=== PATIENT | female | born 1995 | race Two or more races ===

== ENCOUNTER 2017-06-11 16:39 | Emergency (ER) | payer SELFPAY ==
[2017-06-11 16:59] VITALS: BP 111/66
[2017-06-11] MEDS ORDERED: LORATADINE 10 MG TABLET PO ONE (17:37)
[2017-06-11] MEDS ORDERED: ACETAMINOPHEN 325 MG TABLET PO ONE (17:37)
--- NOTE | 2017-06-11 17:43 | ER Document Report ---
ED Respiratory Problem - General Chief Complaint: Congestion Stated Complaint: COUGH Time Seen by Provider: 06/11/17 17:29 Mode of Arrival: Ambulatory Information source: Patient Notes: 42-year-old female presents to ED for cough cold congestion and sore throat times a week. She states that her friend have both been sick and she just come down with it. She does states she has not had a menstrual cycle and 2 months she was informed that she needed to go to the [email or web address] and get a test to check to see if she was before taking any Sudafed and Mucinex. TRAVEL OUTSIDE OF THE [place] IN LAST 30 DAYS: No - HPI Patient complains to provider of: Cough Onset: Last week Duration: Continuous Initiating Event: URI Quality of pain: Achy, Other Severity: Moderate - Sore throat Pain Level: 3 Cough: Nonproductive Sputum amount: None Associated symptoms: Congestion, Cough, PND, Runny nose, Sinus pain/pressure, Sore Throat, Other - Body aches Similar symptoms previously: Yes Recently seen / treated by doctor: No - Related Data Allergies/Adverse Reactions: cephalexin monohydrate [From Keflex] Allergy (Verified 06/11/17 17:37) Past Medical History - General Information source: Patient - Social History Smoking Status: Current Every Day Smoker Cigarette use (# per day): Yes - One third pack a day Chew tobacco use (# tins/day): No Smoking Education Provided: Yes - Less than 2 minutes Frequency of alcohol use: Occasional Drug Abuse: None Occupation: [employer] Lives with: Friend Family History: Reviewed & Not Pertinent Patient has suicidal ideation: No Patient has homicidal ideation: No - Past Medical History Cardiac Medical History: Reports: None Pulmonary Medical History: Reports: None EENT Medical History: Reports: None Neurological Medical History: Reports: None Endocrine Medical History: Reports: None Renal/ Medical History: Reports: None Malignancy Medical History: Reports: None GI Medical History: Reports: None Musculoskeltal Medical History: Reports None Skin Medical History: Reports None Psychiatric Medical History: Reports: None Traumatic Medical History: Reports: None Infectious Medical History: Reports: None Past Surgical History: Reports: Hx Section - Immunizations Immunizations up to date: Yes Hx Diphtheria, Pertussis, Tetanus Vaccination: Yes Review of Systems - Review of Systems Constitutional: Recent illness EENT: Nose discharge, Sinus discharge, Throat pain Cardiovascular: No symptoms reported Respiratory: Cough Gastrointestinal: No symptoms reported Genitourinary: No symptoms reported Female Genitourinary: No symptoms reported Musculoskeletal: Muscle pain - Body aches Skin: No symptoms reported Hematologic/Lymphatic: No symptoms reported Neurological/Psychological: No symptoms reported -: Yes All other systems reviewed and negative Physical Exam - Vital signs Vitals: Temp Pulse Resp BP Pulse Ox 98.6 F 79 18 111/66 97 06/11/17 16:57 06/11/17 16:57 06/11/17 16:57 06/11/17 16:57 06/11/17 16:57 Interpretation: Normal - General General appearance: Appears well, Alert - HEENT Head: Normocephalic, Atraumatic Eyes: Normal Pupils: PERRL Visual morris normal: Yes Ears: Normal External canal: Normal Tympanic membrane: Normal Sinus: Normal Nasal: Purulent discharge, Swelling Mouth/Lips: Normal Mucous membranes: Normal Pharynx: Post nasal drainage Neck: Normal - Respiratory Respiratory status: No respiratory distress Chest status: Nontender Breath sounds: Normal Chest palpation: Normal - Cardiovascular Rhythm: Regular Heart sounds: Normal auscultation Murmur: No - Abdominal Inspection: Normal Distension: No distension Bowel sounds: Normal Tenderness: Nontender Organomegaly: No organomegaly - Back Back: Normal, Nontender - Extremities General upper extremity: Normal inspection, Nontender, Normal color, Normal ROM , Normal temperature General lower extremity: Normal inspection, Nontender, Normal color, Normal ROM , Normal temperature, Normal weight bearing. No: Carlos's sign - Neurological Neuro grossly intact: Yes Cognition: Normal Orientation: AAOx4 [place] Coma Scale Eye Opening: Spontaneous Irineo Coma Scale Verbal: Oriented Irineo Coma Scale Motor: Obeys Commands [place] Coma Scale Total: 15 Speech: Normal Motor strength normal: LUE, RUE, LLE, RLE Sensory: Normal - Psychological Associated symptoms: Normal affect, Normal mood - Skin Skin Temperature: Warm Skin Moisture: Dry Skin Color: Normal Course - Re-evaluation Re-evalutation: 06/11/17 17:44 Assessment consistent with an upper respiratory infection. Patient was given Claritin and Tylenol in the emergency room. Patient was discharged home to follow-up with her primary doctor. - Vital Signs Vital signs: Temp Pulse Resp BP Pulse Ox 98.6 F 79 18 111/66 97 06/11/17 16:57 06/11/17 16:57 06/11/17 16:57 06/11/17 16:57 06/11/17 16:57 Discharge - Discharge Clinical Impression: URI (upper respiratory infection) Qualifiers: URI type: unspecified URI Qualified Code(s): J06.9 - Acute upper respiratory infection, unspecified Condition: Stable Disposition: HOME, SELF-CARE Instructions: Family Physicians / Practices Additional Instructions: UPPER RESPIRATORY ILLNESS: You have a viral infection of the respiratory passages -- a "cold." This common infection causes nasal congestion, drainage, and often sore throat and cough. It is highly contagious. The disease usually lasts about 10 to 14 days. There is no "cure" for the viral infection -- it must run its course. If there is a complication, such as bacterial infection in the nose, sinuses, middle ear, or bronchial tubes, antibiotics may be required. The antibiotics won't affect the virus. Drink plenty of fluids. A humidifier may help. An expectorant medication or decongestant may make you more comfortable. Use acetaminophen or ibuprofen for fever or aches. See the doctor if fever persists over two days, if there is any significant worsening of your symptoms, or if you simply fail to improve as expected. You were given Claritin and Tylenol in the emergency room for your cough and cold symptoms. If you take a test and it is negative then you can use Mucinex and Sudafed for your cough cold symptoms also. DECONGESTANT MEDICATION: A decongestant medicine has been suggested. Often this medicine is combined in the same tablet with an antihistamine or expectorant. This type of medicine is helpful in treating a bad cold or sinus condition, as well as in treatment of the nasal congestion of hay fever. It is not of much benefit for lung infections. Decongestant medicines are related to stimulants. They can cause an increase in blood pressure and heart rate. Persons with heart disease and high blood pressure should not take decongestants without discussing this with the physician. If you develop palpitations, chest pain, headache, or tremors, stop the medicine and consult your physician. COUGH-SUPPRESSANT & EXPECTORANT MEDICATION: You are to use a cough medication as needed for relief of symptoms. This medicine is a combination of an expectorant (to make the mucous thinner and more easily "coughed up") and a cough suppressant (to reduce the frequency of coughing). The cough-suppressant medicine is related to narcotics. You may experience mild nausea and sleepiness. Some patients who are very sensitive to narcotics may have stomach pain from this medicine. Taking the medicine with food reduces these side effects. Do not drive or work with machinery until you know how this medicine affects you. The expectorant should have no side effects. Iodine-containing expectorants (such as organidin) should not be taken by persons with active thyroid disease unless approved by your doctor. Call the doctor if you develop shortness of breath, hives, rash, itching, lightheadedness, or severe nausea and vomiting. USE OF ACETAMINOPHEN (Tylenol): Acetaminophen may be taken for pain relief or fever control. It's much safer than aspirin, offering a wider range of "safe" dosages. It is safe during . Some brand names are Tylenol, Panadol, Datril, Anacin 3, Tempra, and Liquiprin. Acetaminophen can be repeated every four hours. The following are maximum recommended dosages: >89 pounds or adults 650 mg to 900 mg Acetaminophen can be repeated every four hours. Maximum dose not to exceed 4000 mg a day. SMOKING: If you smoke, you should stop smoking. The tar and chemicals in cigarette smoke are harmful. Smoking has been shown to cause: emphysema chronic bronchitis lung cancer mouth and throat cancer stomach and pancreas cancer premature aging defects In addition, smoking increases ear and lung infections in children of smokers. FOLLOW-UP CARE: If you have been referred to a physician for follow-up care, call the physician s office for an appointment as you were instructed or within the next two days. If you experience worsening or a significant change in your symptoms, notify the physician immediately or return to the Emergency Department at any time for re-evaluation. Forms: Return to Work
== END 2017-06-11 17:58 | disposition home or self-care (01) ==
LOC: ER 16:39
DX: J02.9 Acute pharyngitis, unspecified (principal); R05 Cough; R09.82 Postnasal drip; J34.89 Other specified disorders of nose and nasal sinuses; M79.1 Myalgia; Z88.1 Allergy status to other antibiotic agents; F17.210 Nicotine dependence, cigarettes, uncomplicated; Z71.6 Tobacco abuse counseling
CPT/HCPCS: 99283

== ENCOUNTER 2017-12-18 16:45 | Emergency (ER) | payer SELFPAY ==
[2017-12-18 16:56] VITALS: BP 107/65
[2017-12-18] MEDS ORDERED: ONDANSETRON 4 MG TAB.RAPDIS PO ONE (17:27)
--- NOTE | 2017-12-18 17:31 | ER Document Report ---
ED General - General Chief Complaint: Nausea/Vomiting Stated Complaint: VOMITING Time Seen by Provider: 12/18/17 17:20 Notes: 22-year-old female here with complaints of nausea vomiting diarrhea ongoing for the past 3-4 days. The symptoms started after eating beef lo mein at a [employer] restaurant. She has not tried anything for the symptoms. She has not been able to keep anything down, she reports. She has not had any abdominal pain fevers chills. No known sick contacts. Immunizations up-to-date. TRAVEL OUTSIDE OF THE [place] IN LAST 30 DAYS: No - Related Data Allergies/Adverse Reactions: cephalexin monohydrate [From KeSunpreme] Allergy (Verified 06/11/17 17:37) Past Medical History - Social History Smoking Status: Unknown if Ever Smoked Family History: Reviewed & Not Pertinent Renal/ Medical History: Denies: Hx Peritoneal Dialysis Past Surgical History: Reports: Hx Section - Immunizations Immunizations up to date: Yes Hx Diphtheria, Pertussis, Tetanus Vaccination: Yes Review of Systems - Review of Systems Notes: See history of present illness for pertinent positive review of systems; otherwise all review of systems have been reviewed and are negative Physical Exam - Vital signs Vitals: Temp Pulse Resp BP Pulse Ox 99.5 F 87 18 107/65 100 12/18/17 16:54 12/18/17 16:54 12/18/17 16:54 12/18/17 16:54 12/18/17 16:54 - Notes Notes: PHYSICAL EXAMINATION: GENERAL: Well-appearing and in no acute distress. HEAD: Atraumatic, normocephalic. EYES: Pupils equal round and reactive to light, extraocular movements intact, sclera anicteric, conjunctiva are normal. ENT: nares patent, oropharynx clear without exudates. Moist mucous membranes. NECK: Normal range of motion, supple without lymphadenopathy LUNGS: CTAB and equal. No wheezes rales or rhonchi. HEART: Regular rate and rhythm without murmurs ABDOMEN: Soft, no tenderness. No facial grimacing/wincing upon palpation. No guarding, no rebound. EXTREMITIES: Normal range of motion, no pitting edema. No cyanosis. NEUROLOGICAL: Cranial nerves grossly intact. Normal sensory/motor exams. PSYCH: Normal mood, normal affect. SKIN: Warm, Dry, normal turgor, no rashes or lesions noted Course - Re-evaluation Re-evalutation: 12/18/17 17:30 MEDICAL DECISION MAKING: Concern for gastrointestinal infection, most likely viral Dose of Zofran here and prescription Zofran ODT Phenergan suppository Instructed patient on fever control with Tylenol and/or (if applicable) Motrin Also discussed keeping hydrated with water or Gatorade/Pedialyte Instructed follow-up PCP next day or few Patient understands and agrees to the plan of care - Vital Signs Vital signs: Temp Pulse Resp BP Pulse Ox 99.5 F 87 18 107/65 100 12/18/17 16:54 12/18/17 16:54 12/18/17 16:54 12/18/17 16:54 12/18/17 16:54 Discharge - Discharge Clinical Impression: Nausea vomiting and diarrhea Condition: Good Disposition: HOME, SELF-CARE Instructions: Viral Syndrome (OM) Additional Instructions: You were seen in the emergency department at [facility]. You likely have a gastrointestinal infection, most likely viral. Use Motrin and/or Tylenol for fever control. You may use the prescribed Zofran for vomiting. If this is not working, use the Phenergan suppository (this may make you sleepy). Stay hydrated. Please followup with your primary physician in the next few days for further management/evaluation. Please return to the emergency department for worsening of symptoms or any symptom that you deem to be concerning or life-threatening. Thank you for allowing us to be part of your care. This is your school/work note for your Emergency Department evaluation today. Prescriptions: Ondansetron [Zofran Odt 4 mg Tablet] 1 tab PO Q4H PRN #15 tab.rapdis PRN Reason: For Nausea/Vomiting Promethazine HCl [Phenergan 25 mg Supp.rect] 1 supp MN Q6H #12 supp.rect
== END 2017-12-18 17:37 | disposition home or self-care (01) ==
LOC: ER 16:45
DX: R11.2 Nausea with vomiting, unspecified (principal); R19.7 Diarrhea, unspecified
CPT/HCPCS: 99283; S0119

== ENCOUNTER 2017-12-20 02:16 | Emergency (ER) | payer SELFPAY ==
[2017-12-20] MEDS ORDERED: NORMAL SALINE 1000 ML 1,000 ML IV ONE ×2 (04:57→06:58)
[2017-12-20] MEDS ORDERED: METOCLOPRAMIDE HCL INJ/PF 10 MG/2 ML SDV IV ONE ×2 (04:57→07:19)
--- NOTE | 2017-12-20 04:59 | ER Document Report ---
ED GI/ <MASON FLORES - Last Filed: 12/20/17 08:48> - General TRAVEL OUTSIDE OF THE [place] IN LAST 30 DAYS: No <BRIANA GORDON - Last Filed: 12/21/17 04:42> - General Chief Complaint: Abdominal Pain Stated Complaint: NAUSEA Time Seen by Provider: 12/20/17 04:19 Notes: Patient is a 22-year-old female comes emergency department for chief complaint of nausea, vomiting, abdominal pain, she states that symptoms started 6 days ago , she has had a couple of loose stools as well. She states that she has reduced appetite and if she eats she feels nauseated and occasionally vomits. She did this twice over the past day. LMP within the past month. She denies fever. She was seen a couple of days ago and diagnosed with a viral illness although she did not have any workup performed at that time. She states the Zofran did not help. She denies flank pain, chest pain, vaginal discharge, dysuria. She denies any daily medications. Only past medical history reported is a . (BRIANA GORDON) - Related Data Allergies/Adverse Reactions: cephalexin monohydrate [From Keflex] Allergy (Verified 06/11/17 17:37) Past Medical History - General Information source: Patient - Social History Smoking Status: Never Smoker Frequency of alcohol use: Occasional Drug Abuse: None Lives with: Friend Family History: Reviewed & Not Pertinent Patient has suicidal ideation: No Patient has homicidal ideation: No Renal/ Medical History: Denies: Hx Peritoneal Dialysis Past Surgical History: Reports: Hx Section - Immunizations Immunizations up to date: Yes Hx Diphtheria, Pertussis, Tetanus Vaccination: Yes <BRIANA GORDON - Last Filed: 12/21/17 04:42> Review of Systems - Review of Systems Constitutional: See HPI EENT: No symptoms reported Cardiovascular: No symptoms reported Respiratory: No symptoms reported Gastrointestinal: See HPI Genitourinary: No symptoms reported Female Genitourinary: No symptoms reported Musculoskeletal: No symptoms reported Skin: No symptoms reported Hematologic/Lymphatic: No symptoms reported Neurological/Psychological: No symptoms reported <MASON FLORES Soni - Last Filed: 12/20/17 08:48> - Review of Systems Constitutional: See HPI EENT: No symptoms reported Cardiovascular: No symptoms reported Respiratory: No symptoms reported Gastrointestinal: No symptoms reported Genitourinary: No symptoms reported Female Genitourinary: No symptoms reported Musculoskeletal: No symptoms reported Skin: No symptoms reported Hematologic/Lymphatic: No symptoms reported Neurological/Psychological: No symptoms reported <BRIANA GORDON - Last Filed: 12/21/17 04:42> Physical Exam <MASON FLORES - Last Filed: 12/20/17 08:48> - Vital signs Interpretation: Normal - General General appearance: Appears well In distress: None - HEENT Head: Normocephalic, Atraumatic Eyes: Normal Conjunctiva: Normal Eyelashes: Normal Pupils: PERRL Ears: Normal External canal: Normal Tympanic membrane: Normal Sinus: Normal Nasal: Normal Mouth/Lips: Normal Mucous membranes: Dry Pharynx: Normal Neck: Normal - Respiratory Respiratory status: No respiratory distress Chest status: Nontender Breath sounds: Normal Chest palpation: Normal - Cardiovascular Rhythm: Regular. No: Tachycardia Heart sounds: Normal auscultation, S1 appreciated, S2 appreciated Murmur: No - Abdominal Inspection: Normal Distension: No distension Bowel sounds: Normal Tenderness: Tender - mild LUQ and epigastric tenderness, no guarding, no rigidity - Back Back: Normal, Nontender. No: Tender, CVA tenderness - Extremities General upper extremity: Normal inspection, Nontender, Normal color, Normal ROM , Normal temperature General lower extremity: Normal inspection, Nontender, Normal color, Normal ROM , Normal temperature, Normal weight bearing. No: Carlos's sign - Neurological Neuro grossly intact: Yes Cognition: Normal Orientation: AAOx4 [place] Coma Scale Eye Opening: Spontaneous Irineo Coma Scale Verbal: Oriented [place] Coma Scale Motor: Obeys Commands Irineo Coma Scale Total: 15 Speech: Normal Motor strength normal: LUE, RUE, LLE, RLE Sensory: Normal - Psychological Associated symptoms: Normal affect, Normal mood - Skin Skin Temperature: Warm Skin Moisture: Dry Skin Color: Normal <BRIANA GORDON - Last Filed: 12/21/17 04:42> - Vital signs Vitals: Temp Pulse Resp BP Pulse Ox 98.9 F 67 18 97/64 L 98 12/20/17 02:27 12/20/17 02:27 12/20/17 02:27 12/20/17 02:27 12/20/17 02:27 - Notes Notes: PHYSICAL EXAMINATION: GENERAL: Well-appearing, well-nourished and in no acute distress. HEAD: Atraumatic, normocephalic. EYES: Pupils equal round and reactive to light, extraocular movements intact, conjunctiva are normal. ENT: Nares patent, oropharynx clear without exudates. Moist mucous membranes. NECK: Normal range of motion, supple without lymphadenopathy LUNGS: Breath sounds clear to auscultation bilaterally and equal. No wheezes rales or rhonchi. HEART: Regular rate and rhythm without murmurs ABDOMEN: Soft, nondistended abdomen. Right upper quadrant, epigastric and left upper quadrant tenderness on palpation. no guarding, no rebound. No masses appreciated. CVA tenderness appreciated bilaterally Female : deferred Musculoskeletal: Normal range of motion, no pitting or edema. No cyanosis. NEUROLOGICAL: Cranial nerves grossly intact. Normal speech, normal gait. Normal sensory, motor exams PSYCH: Normal mood, normal affect. SKIN: Warm, Dry, normal turgor, no rashes or lesions noted. (MASON FLORES) Course - Laboratory Result Diagrams: 12/20/17 05:07 12/20/17 05:07 <MASON FLORES - Last Filed: 12/20/17 08:48> - Laboratory Result Diagrams: 12/20/17 05:07 12/20/17 05:07 <BRIANA GORDON - Last Filed: 12/21/17 04:42> - Re-evaluation Re-evalutation: 12/20/17 08:48 07 15, disposition given by JERSEY Blair. Patient's presents to the ER for the second time in 2 days for persistent nausea and vomiting. See negative for any leukocytosis or anemia. CMP negative for renal deficiency however patient does have slightly elevated AST and ALT of enzymes. no electrolyte disturbances noted. Patient is receiving IV hydration, he is on her seconds IV bag of fluids. Will be given a p.o. challenge in approximately 1 hour. 0815- patient vomited clear emesis. Reports still feeling nauseous. Patient reports she is having epigastric pain. Discussed with patient if she uses any illicit drug use. States that she does smoke marijuana. Does not have a primary care doctor to follow-up with. We will give patient's Compazine for antiemetic, will add a hepatitis panel as well as an abdomen complete for further evaluation of her persistent nausea and vomiting. 12/20/17 08:49 (MASON FLORES) Patient has minimal left upper quadrant pain and epigastric pain on exam, abdomen does not have any guarding. Patient is nontoxic in appearance. Vital signs unremarkable. CMP unremarkable except for mild elevation of LFTs, patient states she has been taking a lot of Tylenol although she has been vomiting in between. She denies IV drug abuse. CBC is unremarkable other than mild leukocytosis. Urinalysis is unremarkable other than evidence of significant dehydration with ketones and elevated specific gravity. Patient given multiple bags of IV fluid resuscitation. Patient had vomited after initial medications, she will be remedicated, she states she actually feels a lot better though. Still very low suspicion of acute abdomen, patient will be remedicated, have additional p.o. trial. Patient will be left in the care of Sam BOURGEOIS. (BRIANA GORDON) - Vital Signs Vital signs: Temp Pulse Resp BP Pulse Ox 97.6 F 72 16 99/74 L 98 12/20/17 11:18 12/20/17 11:18 12/20/17 11:18 12/20/17 11:18 12/20/17 11:18 - Laboratory Laboratory results interpreted by tx: 12/20/17 12/20/17 12/20/17 05:07 05:07 06:30 Plt Count 116 L Monocytes % 13.5 H Potassium 3.4 L Calcium 8.2 L AST 74 H ALT 64 H Urine Protein 100 H Urine Ketones 80 H Urine Blood SMALL H Urine Urobilinogen 4.0 H Discharge <MASON FLORES - Last Filed: 12/20/17 08:48> <BRIANA GORDON - Last Filed: 12/21/17 04:42> - Discharge Clinical Impression: Nausea vomiting and diarrhea, Dehydration Condition: Stable Disposition: HOME, SELF-CARE Additional Instructions: Your workup shows dehydration, no specific abnormalities otherwise. This was probably viral initially, recommendation is to take the Zantac along with either the Reglan prescribed or the original Zofran. Start with clear fluids, progress to bland foods, then normal diet. Continue to rehydrate. Return if you worsen including returned vomiting, severe pain in the abdomen, fever, or any other concerning or worsening symptoms. Prescriptions: Metoclopramide HCl [Reglan] 5 mg PO ASDIR PRN #30 tablet PRN Reason: Ranitidine HCl [Zantac 150 mg Tablet] 150 mg PO BID #30 tablet
[2017-12-20 05:33] LABS: ABSOLUTE LYMPHOCYTES (AUTO) 1.4 10^3/uL (0.5-4.7); ABSOLUTE MONOCYTES (AUTO) 0.7 10^3/uL (0.1-1.4); ABSOLUTE NEUT (AUTO) 2.8 10^3/uL (1.7-8.2); BASOPHILS % (AUTO) 0.3 % (0-2); EOSINOPHILS % (AUTO) 0.9 % (0-6); HEMATOCRIT 38.3 % (36.0-47.0); HEMOGLOBIN 13.2 g/dL (12.0-15.5); LYMPHOCYTES % (AUTO) 28.7 % (13-45); MEAN CORPUSCULAR HEMOGLOBIN 29.3 pg (27.0-33.4); MEAN CORPUSCULAR HGB CONC 34.6 g/dL (32.0-36.0); MEAN CORPUSCULAR VOLUME 85 fl (80-97); MONOCYTES % (AUTO) 13.5 % (3-13); PLATELET COUNT 116 10^3/uL (150-450); RED BLOOD COUNT 4.52 10^6/uL (3.72-5.28); RED CELL DISTRIBUTION WIDTH 13.5 % (11.5-14.0); SEGMENTED NEUTROPHILS % (AUTO) 56.6 % (42-78); TOTAL CELLS COUNTED % (AUTO) 100 %; WHITE BLOOD COUNT 4.9 10^3/uL (4.0-10.5)
[2017-12-20 05:46] LABS: ALANINE AMINOTRANSFERASE 64 U/L (9-52); ALBUMIN 3.9 g/dL (3.5-5.0); ALKALINE PHOSPHATASE 65 U/L (38-126); ANION GAP 11 (5-19); ASPARTATE AMINO TRANSFERASE 74 U/L (14-36); BILIRUBIN,DIRECT 0.4 mg/dL (0.0-0.4); BILIRUBIN,TOTAL 0.5 mg/dL (0.2-1.3); BLOOD UREA NITROGEN 9 mg/dL (7-20); CALCIUM 8.2 mg/dL (8.4-10.2); CARBON DIOXIDE 28 mmol/L (22-30); CHLORIDE 100 mmol/L (98-107); GLUCOSE 100 mg/dL (75-110); LIPASE 47.3 U/L (23-300); POTASSIUM 3.4 mmol/L (3.6-5.0); SODIUM 139.1 mmol/L (137-145)
[2017-12-20] MEDS ORDERED: SUCRALFATE 1 GM TABLET PO ONE (06:24)
[2017-12-20] MEDS ORDERED: FAMOTIDINE 20 MG TABLET PO ONE (06:24)
[2017-12-20 06:49] LABS: APPEARANCE,URINE SLIGHTLY-CLOUDY; BILIRUBIN,URINE NEGATIVE (NEGATIVE); GLUCOSE, URINE NEGATIVE (NEGATIVE); KETONES,URINE 80 mg/dL (NEGATIVE); LEUKOCYTE ESTERASE,URINE NEGATIVE (NEGATIVE); NITRITE,URINE NEGATIVE (NEGATIVE); PROTEIN,URINE 100 mg/dL (NEGATIVE); URINE SPECIFIC GRAVITY 1.024
[2017-12-20 06:50] LABS: COLOR,URINE YELLOW
[2017-12-20] MEDS ORDERED: MORPHINE SULFATE 10 MG/ML INJ IV ONE (07:00)
[2017-12-20] MEDS ORDERED: DIPHENHYDRAMINE HCL 50 MG/ML VIAL IV ONE (07:19)
[2017-12-20] MEDS ORDERED: PROCHLORPERAZINE EDISYLATE INJ 10 MG/2 ML VIAL IV ONE (08:38)
[2017-12-20] MEDS ORDERED: NORMAL SALINE 1000 ML 1,000 ML IV PRN (08:52)
[2017-12-20 09:52] LABS: URINE AMPHETAMINES SCREEN NEGATIVE; URINE BENZODIAZEPINES SCREEN NEGATIVE; URINE COCAINE SCREEN NEGATIVE; URINE MARIJUANA (THC) SCREEN UNCONFIRMED POSITIVE; URINE METHADONE SCREEN NEGATIVE; URINE PHENCYCLIDINE SCREEN NEGATIVE
[2017-12-20 09:58] LABS: URINE BARBITURATES SCREEN NEGATIVE
--- NOTE | 2017-12-20 10:35 | RADIOLOGY REPORT (SQ) ---
EXAM DESCRIPTION: U/S ABDOMEN COMPLETE W/DOPPLER COMPLETED DATE/TIME: 12/20/2017 10:08 am REASON FOR STUDY: upper abd pain, n/v, elevated liver enz COMPARISON: None. TECHNIQUE: Dynamic and static grayscale images acquired of the abdomen and recorded on PACS. Nilamo shu selected color Doppler and spectral images recorded. LIMITATIONS: None. FINDINGS: PANCREAS: Midline pancreas unremarkable. LIVER: No masses. Echotexture normal. LIVER VASCULATURE: Normal directional flow of the main portal vein and hepatic veins. GALLBLADDER: No stones. Normal wall thickness. No pericholecystic fluid. ULTRASOUND-DETECTED GUZMAN'S SIGN: Negative. INTRAHEPATIC DUCTS AND COMMON DUCT: CBD and intrahepatic ducts normal caliber. No filling defects. INFERIOR VENA CAVA: Normal flow. AORTA: No aneurysm. RIGHT KIDNEY: Normal size. Normal echogenicity. No solid or suspicious masses. No hydronephros is. No calcifications. LEFT KIDNEY: Normal size. Normal echogenicity. No solid or suspicious masses. No hydronephrosi s. No calcifications. SPLEEN: Normal size. No solid masses. PERITONEAL AND PLEURAL SPACES: No ascites or effusions. OTHER: No other significant finding. IMPRESSION: NORMAL ABDOMINAL ULTRASOUND. TECHNICAL DOCUMENTATION: JOB ID: [id number] [email or web address]- All Rights Reserved Reading location - IP/workstation name: [email or web address]
[2017-12-20 11:21] VITALS: BP 99/74
[2017-12-21 07:42] LABS: HEPATITIS A AB IGM Negative (Negative); HEPATITIS B CORE AB IGM Negative (Negative); HEPATITS B SURFACE ANTIGEN Negative (Negative)
[2017-12-21 11:40] LABS: HEPATITIS C VIRUS ANTIBODY <0.1 s/co ratio (0.0-0.9)
== END 2017-12-20 11:21 | disposition home or self-care (01) ==
LOC: ER 02:16
DX: R11.2 Nausea with vomiting, unspecified (principal); R19.7 Diarrhea, unspecified; E86.0 Dehydration; R10.13 Epigastric pain; R10.12 Left upper quadrant pain; R63.0 Anorexia; R10.816 Epigastric abdominal tenderness; R10.812 Left upper quadrant abdominal tenderness; R10.811 Right upper quadrant abdominal tenderness; R74.8 Abnormal levels of other serum enzymes; D72.829 Elevated white blood cell count, unspecified; Z88.1 Allergy status to other antibiotic agents
CPT/HCPCS: 96376; 99284; 96361; 96374; 96375; 36415; 83690; 85025; 81025; 80053; 81001; 80307; 80074; 76700; 93976; J1200; J2765; J2270; J0780; J7030